=== PATIENT | male | born 1965 | race Hispanic/Latino ===

== ENCOUNTER 2018-10-04 11:33 | Outpatient (CLI) | payer BC ==
--- NOTE | 2018-10-04 12:17 | RAD ---
TWO VIEWS CHEST: DATE: 10/04/2018. PROVIDED CLINICAL HISTORY: Pneumonia. FINDINGS: Cardiac and mediastinal silhouette is within normal limits. The lungs are hypoinflated. No definite lobar consolidation, pleural fluid, or pneumothorax apparent. IMPRESSION: Hypoinflated exam without evidence for an acute cardiopulmonary process. POS: OFF
== END 2018-10-04 11:34 | disposition home or self-care (01) ==
LOC: BICRAD 11:33
PROVIDERS: ATTEND Family Medicine
DX: J18.9 Pneumonia, unspecified organism (principal)
CPT/HCPCS: 36415; 71046; 80053; 80061; 83036; 84550; 85025

== ENCOUNTER 2019-04-10 17:01 | Emergency (ER) | payer BC, SELFPAY ==
[2019-04-10] MEDS ORDERED: Ibuprofen 200 MG TAB ONE ×2 (18:30→18:37)
== END 2019-04-10 18:42 | disposition home or self-care (01) ==
LOC: ERS 17:01
DX: M54.5 Low back pain (principal); M79.604 Pain in right leg; E11.9 Type 2 diabetes mellitus without complications; I10 Essential (primary) hypertension; E78.5 Hyperlipidemia, unspecified; V89.2XXA Person injured in unspecified motor-vehicle accident, traffic, initial encounter
CPT/HCPCS: 99283